=== PATIENT | male | born 1950 | race Caucasian/White ===

== ENCOUNTER 2019-06-12 10:14 | Inpatient (IN) | payer OTHER, SELFPAY ==
[2019-06-08 09:55] VITALS: BMI 33.2
[2019-06-12] VITALS (23 sets, daily range): BP systolic 120–163; BP diastolic 51–92; PULSE 37–60; RESP 9–16; TEMP 36.1–36.8; O2SAT 90–100; BMI 33.2
--- NOTE | 2019-06-12 | DI.RAD.S_ITS ---
PROCEDURE: XR LUMBAR SPINE 2-3V INDICATIONS: L4-5 LAMI TECHNIQUE: 2 views of the lumbar spine were acquired. COMPARISON: [facility], MR, MR LUMBAR SPINE WITHOUT CONTRAST, 12/27/2018, 13:09. [facility], CR, XR LUMBAR SPINE FLEXION EXTENSION, 10/25/2018, 10:39. FINDINGS: 2 intraoperative fluoroscopy images demonstrate discectomy and posterior fusion at L4-L5. There is a disc prosthesis in the interspace. IMPRESSION: Discectomy and posterior fusion. Dictated by: Gina Jaramillo M.D. on 06/12/2019 at 18:31 Approved by: Gina Jaramillo M.D. on 06/12/2019 at 18:32
[2019-06-12] MEDS: LACTATED RINGERS 1,000 ML 42 ML IV ×2 (11:20→15:54)
--- NOTE | 2019-06-12 13:50 | PM.PREOP ---
Pre-operative Note Interval Note History & Physical reviewed/Exam performed by Physician: Yes Changes to H&P: No
--- NOTE | 2019-06-12 14:06 | P.OP_ITS ---
Operative Date/Time/Diagnoses Date of procedure: 06/12/19 Time of procedure: 16:55 Pre-op diagnosis: Lumbar stenosis with radiculopathy Lumbar facet cyst Lumbar spondylolisthesis Post-op diagnosis: same Procedure & Clinicians Procedure: L4-5 TLIF (posterior/posterior interbody fusion) with cage L4, L5 screws Iliac crest bone graft aspirate L4-5 laminectomy Use of microscope Placement of epidural catheter Same procedure as scheduled: Yes Indications: [age] year old male with intractable pain from spinal stenosis from a large facet cyst. They had failed conservative management and requested operative intervention. Risks and benefits of surgery were discussed and appropriate consents were obtained. Surgeon: Prince Nobles Executive Assistant To General Counsel: Nuvia Cohen Anesthesia Type: General Operative Notes Findings: None Closure Type: primary Specimen(s): none sent Prosthetic devices, grafts, tissues, transplants, or devices: NuVasive MAS Reline screws Globus Rise cage Applied: catheter Estimated Blood Loss (mL): 20 Procedure in detail: The patient was brought to the operating room and intubated on the table. A time-out was performed. They were then rolled over to the well- padded [place] table in the prone position. Preoperative antibiotics were given. The back was prepped and draped in the standard sterile fashion. Using fluoroscopy, a 4 cm longitudinal incision was made to the well-marked right of the midline. We used Bovie to come down to and split the lumbodorsal fascia. Using fluoroscopy and monitoring, we then percutaneously placed Jamshidi needles down the pedicles of L4 and L5 on the right side. These were changed out to guidewires and then we tapped and then placed the NuVasive MAS Reline screw shanks. We then opened up the retractors and used Bovie to clear up the concert manager olateral gutter as well as medially along the lamina to the spinous processes. A bur was used to decorticate the transverse processes. We brought in the microscope. Using a combination of bur and Kerrison rongeurs, a laminectomy was performed from the right side. There was extensive dissection around the facet cyst. This was adherent to the dura and had to be carefully dissected away, greatly increasing the complexity and time of this laminectomy compared to just doing an approach for a TLIF. Because of this, the laminectomy was a separate and distinct procedure.. We finally cleared over past the midline and carefully depressed the dura until we were able to decompress the opposite side. We cleared out the neural foramen. This completed the laminectomy at L4-5. We then began the TLIF prep. A complete facetectomy was performed on this side at L4-5. We carefully cleaned up the remainder of the foramen until we could easily retract the exiting root as well as clearing medially below the dura and expose the disc space. The disc was prepped with bipolar and then an annulotomy was performed. We performed a diskectomy using a combination of paddles, mikaela, pituitaries, and curettes. We distracted the disc using a paddle and locked the retractor in an open position. We then filled the disc space with Osteocel bone graft. We then placed the globus Rise cage under fluoroscopy and then filled this in with more bone graft. The distraction on the retractor was released to compress down. This completed the posterior interbody fusion portion of the TLIF at L4-5. We then placed the screw heads, john, and locked down the set screws. The wound was copiously irrigated. A small stab incision was made over the PSIS. We used a Jamshidi needle to aspirate several mL of bone marrow from the pelvis. This was mixed with the remaining Osteocel and combined with all of the locally harvested bone graft and placed in the posterolateral gutter for the posterior fusion of the TLIF at L4- 5. An epidural catheter was then placed in the spinal canal by carefully depressing the dura and advancing it 6 cm cephalad under the remaining lamina without resistance. The muscle fascia was closed. The catheter was then injected with a solution containing 4 mL of 0.5% Marcaine, 1 mg Stadol, 4 mg Duramorph, and 100 mcg of fentanyl. This was injected without resistance and the catheter was pulled. We then went to the opposite side. Again using fluoroscopy, a 3 cm incision was made and Bovie was used to come down to split the fascia. Using neural monitoring and fluoroscopy, Jamshidi needles were advanced down the pedicles of [] on the [] side. These were switched over guidewires, tapped, and screws placed. We then placed a john and locked the set screws on this side. The wound was irrigated. The fascia was closed. Vancomycin powder was placed in the wounds. The superficial and skin were closed. A sterile dressing was placed. The patient was then rolled over extubated and brought to recovery room without complications. Complications: none Post-operative Condition: stable Disposition: PACU Plan for aftercare: Inpatient.
[2019-06-12] MEDS: CEFAZOLIN 2 GM/100 ML FROZ.PIGGY IV ×2 (14:19→21:58)
--- NOTE | 2019-06-12 14:53 | SUR.OPER ---
Prone on spine table, head in foam head support, padded chest and pelvic supports, gel pad at knees, lower legs supported by pillows; nipples, genitalia and toes free of pressure, arms secured on foam padded arm boards at <90 degrees abduction. Tape over blanket at thigh secured to table.
[2019-06-12] MEDS: SODIUM CHLORIDE 0.9% 1,000 ML, GENTAMICIN 80 MG IRR ×2 (14:57→14:58)
[2019-06-12] MEDS: THROMBIN (RECOMBINANT) 5,000 UNIT VIAL 5000 UNIT TOP (14:57)
[2019-06-12] MEDS: VANCOMYCIN 1,000 MG VIAL 1000 MG TOP (14:58)
[2019-06-12] MEDS: BUPIVACAINE 0.5% (PF) 4 ML, MORPHINE-PF 4 MG, BUTORPHANOL 1 MG, fentaNYL 100 MCG INJ (16:23)
--- NOTE | 2019-06-12 17:12 | SUR.PHASEI ---
Pt arrived with oral air way and chin lift needed for airway patency, 02 added, airway out, pt responsive.
[2019-06-12] MEDS: HYDROMORPHONE 2 MG INJ IV ×4 (17:18→17:48)
[2019-06-12] MEDS: hydrOXYzine 50 MG/ML INJ 25 MG IM (17:33)
--- NOTE | 2019-06-12 19:15 | PC.NURSE ---
Addendum entered by Jihan Wheat R.N. 06/12/19 23:27: After original assessment, patient very drowsy & mostly dozing, having obvious apnea as long as 10-20 seconds, observed by myself & his . His reports that he does this at home & I have to wake him up to breathe. She said he has never had a sleep study. Patient mouth breathing with head back. Repositioned in bed from left side to his back, then HOB raised from 20 degrees to 40 degrees. He wakes fairly easily to loud voice, although while being instructed to deep breath & stay awake he kept falling asleep. said he asked me what day it was--he is really out of it. I asked to help him stay awake & work on breathing. 2L O2 sat 96-100% and patient did not ever desaturate, pulse ox monitoring on at all times. He did have apnea for the first hour & 1/2 after brought to med-surg, every time he would doze off. I pulled Narcan from [employer] & had med/syringe ready. I told patient that if I gave him medication it would reverse the pain medication, pt aware that nurse would like to avoid that if possible. After spending about 45 minutes with patient at his bedside, working on breathing, working on IS (only getting to 750) & sitting him up to 80 degrees in bed, he woke up, much more alert, oriented x 3 and situation, asking for food. Ate chicken noodle soup & pudding. Denied nausea. Rated back pain increased to 7 or 8, at that point I medicated him with celebrex, tylenol & oxycodone 5 mg. Since then patient has been observed with mostly a regular respiration pattern, once in a while having 5-7 seconds of apnea. O2 2L with sats maintaining high 90's to 100% Wakes easily, agreeable to use IS. Rates pain much better. Repositioned as needed, logrolling technique reinforced. Fall precautions in place tonight, alarm active for safety. slack cooper aware of apnea, RT notified of patient's apnea and they agreed to come & assess patient. Pt's left earlier in the evening, asking nurse to call her if there is any change to patient's status. Original Note: Post-op note: Christophe brought from OR via hospital bed, he is drowsy, falls asleep during conversation, oriented x 3 and situation. Laying flat, requesting to logroll to his left side, assisted him to turn with pillows to support back and legs. Reports he does have pain but then dozes off. Resting HR is 38-41 bpm, regular rhythm, sometimes pulse ox monitor not picking up O2 saturation due to slow pulse, tried repositioning monitor on various fingers with same result. When it works, 2L O2 sat is 100% and HR 38-45 bpm. I notified RT of need for sticker monitor to see if it will read better. Fingers are slightly cool, other extremities warm to the touch. Drsg to lower midline back is CDI, 2nd smaller drsg just right of midline is also CDI. Pulses present, bilateral foot SCD's placed. Disla present with clear yellow output, per DIE WELDER Ignacio, catheter has been bothering patient & he has grabbed at tubing occasionally. asking can't you just take it out? I talked to patient & his about leaving disla in place short term until he is more awake & able to stand at bedside to use urinal. Fall precautions in place, alarm active for safety. Cynthia marshall RN in room to complete admission assessment.
[2019-06-12] MEDS: ACETAMINOPHEN 325 MG TABLET 650 MG PO (20:34)
[2019-06-12] MEDS: CELECOXIB 200 MG CAPSULE 400 MG PO (20:34)
[2019-06-12] MEDS: OXYCODONE IR 5 MG TABLET PO ×2 (20:35→23:43)
[2019-06-12] MEDS: LACTATED RINGERS 1,000 ML 125 ML IV (20:37)
[2019-06-12] MEDS: DOCUSATE 100 MG CAPSULE PO (21:58)
[2019-06-12] MEDS: SENNOSIDES 8.6 MG TABLET 17.2 MG PO (21:58)
[2019-06-12] MEDS: GABAPENTIN 600 MG TABLET PO (21:58)
[2019-06-13] MEDS: HYDROMORPHONE 1 MG INJ 0.5 MG IV ×2 (00:52→23:15)
[2019-06-13] MEDS: LACTATED RINGERS 1,000 ML 125 ML IV (03:53)
[2019-06-13] MEDS: OXYCODONE IR 5 MG TABLET 10 MG PO ×5 (05:19→19:46)
[2019-06-13] MEDS: CEFAZOLIN 2 GM/100 ML FROZ.PIGGY IV (05:22)
[2019-06-13 05:54] VITALS: BP 123/80; PULSE 52; RESP 16; TEMP 36.6; O2SAT 96
[2019-06-13 06:02] LABS: Hematocrit 43.3 % (41-53); Hemoglobin 14.4 g/dL (13.5-17.5)
--- NOTE | 2019-06-13 08:10 | PM.PNPO.1 ---
Subjective Subjective Date Patient Seen: 06/13/19 Time Patient Seen: 08:10 Interval history: He is doing well. Back pain about 12/11. No leg symptoms Exam Vital Signs (past 8 hours): - 06/13/19 05:54 Temperature 97.8 F Pulse Rate 52 L Respiratory Rate 16 Blood Pressure 123/80 Pulse Oximetry 96 Oxygen Delivery Method Nasal Cannula Oxygen Flow Rate 0 Const Orientation: alert and oriented x3 Back/Spine/Pelvis Other: CDI. 5/5 motor both lower extremities. Objective Labs Result Diagrams: 06/13/19 05:30 Labs: Laboratory Results - last 24 hr 06/13/19 05:30 Hgb 14.4 Hct 43.3 Assessment & Plan Post-op Postoperative Procedures: Procedures Operation Date: 06/12/19 12:45 Actual Procedures Side Surgeon p L4-5 laminectomy and instrumentation fusion w/bone graft Prince Nobles MD he is doing well. Mobilize today with physical therapy. Anticipate discharge home tomorrow.
[2019-06-13] MEDS: DOCUSATE 100 MG CAPSULE PO ×2 (08:41→21:57)
[2019-06-13] MEDS: raNITIdine 150 MG CAPSULE PO (08:41)
[2019-06-13] MEDS: METFORMIN HCL 500 MG TABLET PO (08:42)
[2019-06-13] MEDS: GABAPENTIN 600 MG TABLET PO ×3 (08:42→21:57)
[2019-06-13] MEDS: CELECOXIB 200 MG CAPSULE PO ×2 (08:42→21:57)
[2019-06-13] MEDS: LISINOPRIL 20 MG TABLET PO (08:42)
[2019-06-13] MEDS: ACETAMINOPHEN 325 MG TABLET 650 MG PO ×2 (08:43→15:41)
[2019-06-13] MEDS: ATORVASTATIN 20 MG TABLET PO (08:44)
[2019-06-13] MEDS: hydrOXYzine pamoate 25 MG CAPSULE PO ×3 (08:44→19:59)
[2019-06-13] MEDS: hydroCHLOROthiazide 12.5 MG CAPSULE PO (08:46)
[2019-06-13 10:00] VITALS: BP 133/73; PULSE 57; RESP 17; TEMP 36.6; O2SAT 100
--- NOTE | 2019-06-13 10:54 | PT.IIE ---
Current Diagnoses Spondylolisthesis, lumbar region (06/12/19) Spinal stenosis, lumbar region with neurogenic claudication (06/12/19) Surgery Performed Operation Date: 06/12/19 12:45 Actual Procedures p L4-5 laminectomy and instrumentation fusion w/bone graft - Prince Nobles MD Surgical History (Last Updated 06/08/19 @ 10:32 by Natasha Tony, RN) History of bilateral carpal tunnel release (Acute ~2015) Hx of tonsillectomy (Acute) S/P epidural steroid injection (Acute) Medical History (Last Updated 06/08/19 @ 10:35 by Natasha Tony, NICOLETTE) HLD (hyperlipidemia) (Acute) HTN (hypertension) (Acute) Pre-diabetes (Acute) Physical Therapy Inpatient Evaluation/Re-Eval M1 PT/OT-IP Prior Functional Status Start: 06/13/19 08:15 Freq: NEEDED Status: Active Protocol: Document 06/13/19 08:50 HH (Rec: 06/13/19 10:54 HH [id number]) Medical Review Prior Functional Status Medical History Reviewed Yes Communication No deficits noted. able to make needs known Mobility and Gait Pt was independnent for all home and community without using AD. Reports increased back pain during bending over and quick movements. Activities of Daily Living and IADL's independent for all ADLs and IADLs without AD Social History Household Members spouse Living Arrangements House Number of Floors (Floors) Two Floors Number of Stairs To Enter/Railing? no RICH 10 steps to second floor with B rails. (has a landing at 6th step) Home Environment Standard Height Toilet,Tub/ Shower Home Equipment Front Wheel Walker,Bedside Commode,Hand Held Shower Employment Status Retired Additional Social History Comment Pt lives with his in [facility] who works retail department reset 3 days/ week. He states his is very independent and able to assist as needed. Pt usually stays on 2nd floor but he could stay on main floor at this point with bedroom and full bathroom access. M2 PT-IP Current Condition Start: 06/13/19 08:15 Freq: NEEDED Status: Active Protocol: Document 06/13/19 08:50 HH (Rec: 06/13/19 10:54 [id number]) Physical Therapy Current Condition Current Condition Evaluation Date 06/13/19 Treatment Diagnosis L4-5 TLIF, difficulty in walking and decreased activity tolerance Onset Date 06/12/19 Precautions Lumbar Precautions Log Roll,No Twisting,Limit Bending,Lifting Restriction of 10 lbs,Gait Belt above Incisional Area Weight Bearing Status Weight Bearing Status Full Weight Bearing M3 PT-IP Subjective Start: 06/13/19 08:15 Freq: NEEDED Status: Active Protocol: Document 06/13/19 08:50 (Rec: 06/13/19 10:54 [id number]) Subjective Physical Therapy Visit Type Type Initial Evaluation Visit Start Time 08:50 Visit Stop Time 09:30 Total Visit Minutes 40 Notes Per RN Jennifer, Pt has not gotten OOB yet. Number of PLANT CHANGER Visits 0 Physical Therapy Visit Comments Patient Comments I want to walk to see what i am capable to do. Patient Goals To return home with his . Therapy Pain Assessment Pain When Pain Assessed During Mobility Pain Present Pain Present Pain Reported Location Lower Back Intensity 6 Scale Used Numeric (1 - 10) Description Acute Pain Management Techniques Distraction,Timing of Activity with Medications M4 PT-IP Mobility and Gait Start: 06/13/19 08:15 Freq: NEEDED Status: Active Protocol: Document 06/13/19 08:50 (Rec: 06/13/19 10:54 [id number]) PT-Bed Mobility Assessment Rolling Type of Rolling Log Rolling Level of Assist Standby Assistance Supine to Sit Supine to Sit Standby Assistance Scooting Scooting to Edge of Bed Standby Assistance Scooting Up and Down in Bed Standby Assistance PT-Transfer Assessment Sit to and From Stand Sit to and from Stand Standby Assistance Equipment Transfer Assistive Device Gait Belt,Front Wheeled Walker Orthotic/Prosthetic Devices or Brace: No Transfers Transfer Destination Bed,Chair Transfer Technique amb with FWW Transfer Ability Level of Assist Standby Assistance Comments Mobility Comments Pt was in supine upon assessment. BP remains 130s/ 70s during session. Pt was able to recall all post op precautions BLT and log roll. He completed log roll and sidelying to sit with UEs pushed off from bed. He scooted towards EOB and performed sit to stand with FWW SBA. Pt was able to use B UEs push off from bed with a squatting position to minimize trunk flexion. He then returned to bedside chair with proper hand placements on chair armrests with upright eccentric squatting position. Pt sat comfortably in chair without increased discomfort and call light within reach. Gait Assessment Gait Gait Assistance Required: Standby Assistance Distance (Feet) 150 Able to Maintain Weight Bearing Status Yes During Gait Assistive Devices Assistive Device Gait Belt,Front Wheeled Walker Orthotic/Prosthetic Devices or Brace: No Gait Deviations General Gait Pattern Decreased Stride Length, Decreased Feet Clearance Factors Limiting Gait Function Factors Limiting Gait Function Decreased Activity Tolerance, Decreased Strength,Limited Range of Motion,Pain Comments Gait Comments Pt was able to amb a full lap of north station with FWW and SBA. Pt was also able to stand unsupportedly multiple times to chat with PT. He demonstrated a steady and close to normal gait speed with FWW. He did not c/o increased back pain or any discomfort. Stair Climbing Assessment Comments Stair Climbing Comments did not assess PT-Balance Assessment Sitting Balance and Reactions Static Sitting Balance Ability Normal Dynamic Sitting Balance Ability Normal Standing Balance and Reactions Static Standing Balance Ability Normal Dynamic Standing Balance Ability Normal M5 PT-IP Objective Assessments Start: 06/13/19 08:15 Freq: NEEDED Status: Active Protocol: Document 06/13/19 08:50 (Rec: 06/13/19 10:54 [id number]) Orientation Orientation/Cognition Level of Alertness Alert Orientation Name,Age,Birthday,Month,Date, Year,Day of Week,Place, Situation Language Function Ability No Deficits Noted Safety Awareness Understands Safety Issues Memory Description No Deficits Noted Gross Range of Motion Upper Extremity ROM Assessment Within Functional Limits Lower Extremity ROM Assessment Within Functional Limits Strength Upper Extremity Strength Assessment Within Functional Limits Lower Extremity Strength Assessment Right Impaired Hip 4+/5 Knee 4+/5 Coordination Assessment Gross Coordination Gross Coordination WNL Sensation Assessment Sensation Gross Sensation Right LE Impaired Light Touch Impaired Proprioception (Position) Impaired Sensation Description Numbness Comments Sensation Comments Pt reports dull sensation to touch for distal L4-L5 dermatome. Muscle Tone Muscle Tone WNL Yes M6 PT-IP Treatment Start: 06/13/19 08:15 Freq: NEEDED Status: Active Protocol: Document 06/13/19 08:50 (Rec: 06/13/19 10:54 [id number]) Physical Therapy Treatment Exercises Exercises Gluteal Sets,Quad Sets Education Education Provided Precautions,Weight Bearing Status,Post-Op Packet,Safety M7 PT-IP Assessment and Plan Start: 06/13/19 08:15 Freq: NEEDED Status: Active Protocol: Document 06/13/19 08:50 (Rec: 06/13/19 10:54 [id number]) PT Summary Assessment and Plan Potential Rehabilitation Potential Excellent Status of Condition at Evaluation Stable Summary Impairments Pain,ROM,Strength,Balance,Bed Mobility,Transfers,Gait, Activity Tolerance Progress Towards Goals Safe For Discharge Assessment Summary Pt is a low complexity s/p POD 1 L4-L5 TLIF. Pt was able to recall all BLT and log roll post op precautions without cueing. He completed bed mobility, transfers and amb with SBA and FWW. He denies any discomfort or increased pain during session, along with stable VSS. Pt is safe for d/c home with 's assistance at this point. Frequency of Treatment Frequency Of Treatment Discharge Recommendations To Nursing Amount of Assist Needed Standby Assistance Discharge Recommendations PT Discharge Recommendations Home with Assistance
--- NOTE | 2019-06-13 12:05 | OT.IP.EVAL ---
Current Diagnoses Spondylolisthesis, lumbar region (06/12/19) Spinal stenosis, lumbar region with neurogenic claudication (06/12/19) Surgery Performed Operation Date: 06/12/19 12:45 Actual Procedures p L4-5 laminectomy and instrumentation fusion w/bone graft - Prince Nboles MD Past Medical History (Last Updated 06/08/19 @ 10:35 by Natasha Tony, RN) HLD (hyperlipidemia) (Acute) HTN (hypertension) (Acute) Pre-diabetes (Acute) Surgical History (Last Updated 06/08/19 @ 10:32 by Natasha Tony RN) History of bilateral carpal tunnel release (Acute ~2015) Hx of tonsillectomy (Acute) S/P epidural steroid injection (Acute) Occupational Therapy Inpatient Evaluation/Re-Eval M1 PT/OT-IP Prior Functional Status Start: 06/13/19 08:15 Freq: NEEDED Status: Active Protocol: Document 06/13/19 12:05 PJM (Rec: 06/13/19 12:20 PJ [id number]) Medical Review Prior Functional Status Medical History Reviewed Yes Diet/Fluid Consistency Regular Communication WNL Mobility and Gait Pt was independent for all home and community mobility without using AD. Reports increased back pain during bending over and quick movements. Activities of Daily Living and IADL's independent for all ADLs and IADLs without AD, including driving. Social History Household Members spouse Living Arrangements House Number of Floors (Floors) Two Floors Number of Stairs To Enter/Railing? no RICH 10 steps to second floor with B rails. (has a landing at 6th step) Home Environment Standard Height Toilet,Tub/ Shower Home Equipment Front Wheel Walker,Bedside Commode,Shower Seat with Backrest,Hand Held Shower, Certified Coder,Grab Bars In Shower Employment Status Retired Additional Social History Comment Pt lives with his in [facility] who works clinical partner 3 days/ week. He states his is very independent and able to assist as needed. Pt usually stays on 2nd floor but he could stay on main floor at this point with bedroom and full bathroom access. Pt plans to use BSC over toilet and his will move it into tub shower for use as tub seat. M2 OT-IP Current Condition Start: 06/13/19 12:09 Freq: Status: Active Protocol: Document 06/13/19 12:05 PJM (Rec: 06/13/19 12:20 [facility] [id number]) Occupational Therapy Current Condition Current Condition Evaluation Date 06/13/19 Treatment Diagnosis decr'd self care, functional mobility s/p L4-5 TLIF Diagnosis Onset Date 06/12/19 Post Operative Precautions Lumbar Precautions Log Roll,No Twisting,Limit Bending,Lifting Restriction of 10 lbs,Gait Belt above Incisional Area M3 OT- IP Subjective and Pain Start: 06/13/19 12:09 Freq: Status: Active Protocol: Document 06/13/19 12:05 PJM (Rec: 06/13/19 12:20 [facility] [id number]) OT- Subjective Occupational Therapy Visit Type Type Initial Evaluation Visit Start Time 11:36 Visit Stop Time 12:05 Total Visit Minutes 29 Notes Pt's not here this session Occupational Therapy Visit Comments Patient Comments I think I wuill wait to shower until I go home. Patient/Caregiver Goals to have less back pain during self care, IADLS OT Pain Assessment Pain When Pain Assessed After Treatment Pain Present Pain Present Pain Reported Location Lower Back Intensity 6 Scale Used Numeric (1 - 10) Description Aching,Acute Pain Behaviors Guarding Management Techniques Distraction,Re-positioning, Timing of Activity with Medications M4 OT- IP ADL's Start: 06/13/19 12:09 Freq: Status: Active Protocol: Document 06/13/19 12:05 PJ (Rec: 06/13/19 12:20 [facility] [id number]) OT [id number] General Evaluation Self-Feeding Ability Independent OT ADL-Grooming Comments OT Grooming Comments did not occur this session OT ADL-Oral Care Comments Oral Care Comments did not occur this session OT ADL-Dressing General Eval Upper Body Dressing Ability Standby Assistance Areas Needing Assistance Pants/Shorts,Socks,Shoes Assistive Devices Dressing Assistive Devices Long Handled Shoe Horn,Certified Coder ,Sock Aid Comments OT Dressing Comments Began education and pt practice re: use of hand tube winder and sock aid for lower body dressing. Pt has hand tube winder; long shoe horn and sock aid provided. OT ADL-Toileting General Evaluation Toileting Ability Total Assistance Comments OT Toileting Comments disla still in place OT ADL-Bathing Comments OT Bathing Comments to be assessed M5 OT- IP IADL's Start: 06/13/19 12:09 Freq: Status: Active Protocol: Document 06/13/19 12:05 PJM (Rec: 06/13/19 12:20 PJ [email or web address]) OT-Instrumental Activities of Daily Living Deficits IADL Deficits Identified Deficits Home Safety Awareness Awareness of Need for Assistance at Home Good Awareness Ability to Problem Solve Emergency Able to Problem Solve Situations Medication Management Medication Management No Deficits Identified Money Management Money Management No Deficits Identified Meal Preparation Meal Preparation Caregiver Provides Assist Meal Preparation Comments to assist until pt able Gold Leaf Roller Gold Leaf Roller Caregiver Provides Assist Gold Leaf Roller Comments to assist until pt able Driving Driving Concerns Identified Regarding Safety Driving Comments to assist until pt able M6 OT- IP Functional Cognition Start: 06/13/19 12:09 Freq: Status: Active Protocol: Document 06/13/19 12:05 PJM (Rec: 06/13/19 12:20 PJ [id number]) Cognitive Factors Limiting Selfcare Function Cognitive Ability Level of Alertness Alert Patient Orientation Name,Age,Birthday,Month,Date, Year,Day of Week,Place, Situation Attention Span Ability Capable of Focused Attention, Capable of Sustained Attention Ability to Follow Commands Able to Follow Multi-Step Commands Memory Description No Deficits Noted Safety Awareness No Deficits Noted Problem Solving Ability No deficits Noted Executive Function Ability No Deficits Noted OT- Vision and Hearing OT- Hearing Assessment OT- Hearing Assessment WFL OT- Vision Assessment Visual Acuity WFL,Glasses All The Time M7 OT- IP Mobility and Balance Start: 06/13/19 12:09 Freq: Status: Active Protocol: Document 06/13/19 12:05 PJM (Rec: 06/13/19 12:20 PJ [id number]) OT-Transfer Assessment Comments Mobility Comments see P.T. notes; pt seen up in recliner this session OT- Gait Assessment Comments Gait Ability Comments see P.T. notes OT- Balance Assessment Sitting Balance and Reactions Static Sitting Balance Ability Good Dynamic Sitting Balance Ability Good Comments Other Balance Tests/Deviations/Treatment during seated lower body : dressing M8 OT- IP Objective Assessments Start: 06/13/19 12:09 Freq: Status: Active Protocol: Document 06/13/19 12:05 PJM (Rec: 06/13/19 12:20 PJ [id number]) OT Gross Range of Motion Upper Extremity Range of Motion Assessment Within Functional Limits OT Strength Upper Extremity Strength Assessment Within Functional Limits OT- Coordination Assessment Upper Extremity Finger to Nose Test Within Functional Limits OT-Muscle Tone Assessment Muscle Tone WNL Yes OT Sensation Assessment Comments Summary Comments BUE WNL per pt Edema Edema Absent M9 OT- IP Assessment and Plan Start: 06/13/19 12:09 Freq: Status: Active Protocol: Document 06/13/19 12:05 PJM (Rec: 06/13/19 12:20 PJM [id number]) OT Summary Assessment and Plan Potential Rehabilitation Potential Excellent Analytic Complexity at Evaluation Low Summary OT Impairments Pain,Functional Mobility, Dressing,Toileting,Bathing, Toilet Transfers,Shower Transfers Assessment Summary Low complexity OT assessment completed on this 69 yr old male s/p L4-5 TLIF. Began education re: lumbar precautions and adapted ADL techniques. Pt has minor performance deficits in functional mobility, standing grooming, dressing, bathing, toileting. Disla still in place. Anticipate 1 additional OT treatment in AM for further ADL practice. Pt may d/c home tomorrow if medically stable and clears P.T. Goals Grooming Goal Independent Dressing Goal Independent,Long Handled Shoe Horn,Certified Coder,Sock Aid Toileting Goal Independent Bathing Goal Standby Assistance Toilet Transfer Goal Independent Shower Transfer Goal Standby Assistance Patient/Caregiver Education Goal Demonstrate Post-Op Precautions,Demonstrate Energy Conservation and Pacing, Caregiver Independent Assisting Patient Days to Meet Goals 1 Frequency of Treatment Frequency Of Treatment Once a Day Treatment Plan OT Treatment Plan ADL Training,Functional Mobility,Patient/Family Education,Discharge Planning Discharge Recommendations OT Discharge Recommendations Home with Assistance Home Equipment Needs provided long shoe horn and sock aid
[2019-06-13 14:00] VITALS: BP 140/54; PULSE 58; RESP 16; TEMP 36.9; O2SAT 98
--- NOTE | 2019-06-13 15:47 | PC.NURSE ---
Ortho: Pt debating back and forth if he should stay or go. Having some pain issues this am, got oxy, vist, tylenol and he is doing better this afternoon. He only needed oxy then. He says since the epi has worn off during the day today the pain has been more intense. He is worried about going home and maybe needing something IV. Therefore he has decided to stay. Pt does have a slower heart rate and has a past hx of syncopy, he has had a mini cardiac work up but will be getting further work up at a later time. He feels steady on his feet but he reports he has had some dizziness and he was instructed to get up only with assist. he is doing that.
[2019-06-13 16:04] VITALS: BP 121/54; PULSE 45; RESP 18; TEMP 36.9; O2SAT 96
--- NOTE | 2019-06-13 16:05 | CM.DANOTE ---
DCP/Assessment: Reviewed chart. Patient is a 69yr old male admitted [facility] performed by Dr. Nobles on 06-12-19. No PCP listed. Primary payor is 1)[employer]. Met with patient explained CM/SW role. Patient sitting in recliner at time of visit. Patient resides with spouse/Jenny in and hopes to d/c home tomorrow. Prior to admit patient completely I in all ADL's. Patient has all needed DME including a FWW. Received call from [facility]# [phone] she left indicating that if any d/c planning needs arise that she can assist. P: Anticipate home with supportive spouse when stable. VIANCA Wyatt Discharge Planning/Care Management CM Discharge Assessment Start: 06/13/19 16:03 Freq: Status: Active Protocol: Document 06/13/19 16:03 KJS (Rec: 06/13/19 16:05 KJS [id number]) Discharge Planning Assessment Assigned Assistant Professor Of Psychology VIANCA Wyatt Contact Information Jenny Cotto (spouse) Advance Directives? Yes Advance Directives on File No History Provided By Patient,Medical Record Prior Living Arrangements House Household Members spouse Type of transporation used prior to Drives own vehicle admit Independent with ADL's Yes Is patient alert and oriented? Yes Caregiver for Another No DME Already Rented / Owned FWW / Walker Discharge Plan Home Whiteboard Updated in Patient Room with Yes name and ext. # of Assistant Professor Of Psychology Review Status In Process Next Review Type Continued Stay Review Pre-Anesthesia Assessment Start: 06/08/19 09:55 Freq: Status: Complete Protocol: Document 06/08/19 09:55 CAB (Rec: 06/08/19 10:08 CAB [id number]) Pre-Anesthesia Assessment Patient Information Reviewed Via Phone Assessment Assessment Completed With Patient H&P Completed Within 30 Days Yes Diagnostic Results BMP/CMP,CBC,EKG Comment Outside labs/EKG scanned to record Primary Care Provider Jaya Salas Rai Medical Clearance Received Yes Seen Specialist in Last 12 Months Yes Specialist Seen Orthopedist Comment PCP clearance scanned to record Primary Language German Orchard Hand Required No Height 180.34 cm Weight 107.955 kg Body Mass Index (BMI) 33.2 Hearing Ability Normal Visual Assist Glasses Dentition Type Teeth, Natural Present,Teeth, Missing Barriers to Learning None Other Aids No Hx Anesthesia Reactions No Hx Family Anesthesia Reaction No Hx Malignant Hyperthermia No Hx Blood Transfusions No Anesthesia Review Requested No alcohol intake current alcohol intake frequency a few times a week Smoking Status Never smoker Substance Use Type does not use Pain Present Pain Reported Musculoskeletal Symptoms Abnormal Gait,Back Pain, Difficulty Walking,Numbness, Radiating Pain into Limb, Tingling History of Falling (Recent or History of No ) Patient is completely paralyzed or No completely immobile Mental Status Oriented to own ability Is patient on oxygen? No Does patient have ZENG/SOB No Hx Sleep Apnea No Currently Taking a Beta Jason No Hx Chest Pain No Hx SOB No Hx Syncope or Dizziness No Anti-Coagulant Therapy No Has a Tester Compressed Gases No Cardiac Testing No Hx Pacemaker/ICD No Pacemaker Rep Required? No Cardiac Clearance Received Not Applicable Diet Type At Home Regular dysphagia No Urinary Catheter Present No Hx Urinary Self Catheterization No Diabetes No: Pre-diabetes HgbA1C 5.7 Date 05/23/19 Hx Drug Resistant Organism No Presence of External or Internal Medical No Devices Have you traveled outside the [facility] in the last 30 days? Marital Status Lives With spouse Prior Living Arrangements House Number of Floors (Floors) Two Floors Support System Spouse Does the Patient Have Assistance After Yes Surgery Patient Discharge Plan Description Return Home Comment Pt advised 1-2 day length of stay per surgeon Feels Safe in Current Environment Yes Been Physically Hurt or Threatened By a No Person in Current Environment Do you have thoughts of harming yourself None or others? Are you currently considering suicide? No Do you have a plan to hurt yourself or No Plan others? Do You Have Any Spiritual Beliefs That No May Affect Your HC Choices? Do You Have Any Cultural Practices That No May Affect Your HC Choices? Spiritual Referral Confucianism clergy/Lay safe deposit box rental clerk visit Comment Quaker Who Can We Speak to About Patient's Care Family, friends Identifying Code for Release of Patient Declines to issue Information Health Care Proxy/Next of Kin Jenny () Health Care Proxy Emergency Contact Name Jenny () Emergency Contact Advance Directives? Yes Advance Directives on File No Requested Patient Bring Advanced Yes Directives DOS Power of Pipeline Welder Yes Power of Pipeline Welder Name Jenny () Power of Pipeline Welder PAC Instructions Durable medical equipment, Medications to take/avoid, Nasal antibiotic,No ETOH/ petroleum product on skin DOS, NPO,Post-op transportation,Pre -surgical wash,Sturdy shoes/ comfortable clothes,Do not bring valuables and remove jewelry
--- NOTE | 2019-06-13 18:09 | PC.NURSE ---
Addendum entered by Janet Buchanan R.N. 06/13/19 23:30: Pt ambulating in hallway with walker and FURNACE MECHANIC standby this evening shift. Then up to chair. Pt reports oxycodone barely takes edge off of pain and rates this @ 7/10. Pt reports unable to sleep with pain @ this level. After discussion with pt, administered 0.5 mg iv dilaudid to manage pain. Continuous pulse oximeter in place. Room air 99%. Addendum entered by Janet Buchanan R.N. 06/13/19 18:19: Pt and pt's spouse were educated on the constipating effects of narcotics. Encouraged prune juice/prunes as well as meds and suggested pt be vigilent in taking same to prevent constipation. Original Note: Pt in bed awake, alert, very conversant with staff @ beginning of shift. Rates surgical pain to back 7/10 and was medicated as per emar. Deal to gravity with understanding per dayshift report and conversation with pt will be removed in a.m. in preparation for discharge to home. Pt's spouse is present and involved in pt's care. Pt observes log rolling technique for inspection of back dressing. Old shadowy drainage left lateral and right proximal central lower back dressing outlined. I.S. use encouraged. BL foot pumps in place. Palpable pedal pulses BL. Admits to full sensation to BL LE's. Able to push and pull with feet BL.
[2019-06-13 19:43] VITALS: BP 99/53; PULSE 43; RESP 18; TEMP 37.3; O2SAT 97
[2019-06-13] MEDS: SODIUM CHLORIDE 0.9% FLUSH 10 ML IV (19:59)
[2019-06-13] MEDS: SENNOSIDES 8.6 MG TABLET 17.2 MG PO (21:57)
[2019-06-13] MEDS: diphenhydrAMINE 25 MG TABLET PO (22:09)
[2019-06-13 23:00] VITALS: BP 138/64; PULSE 49; RESP 18; TEMP 36.8; O2SAT 96
[2019-06-14] MEDS: OXYCODONE IR 5 MG TABLET 10 MG PO ×4 (01:24→12:16)
[2019-06-14 06:06] VITALS: BP 116/60; PULSE 46; RESP 18; TEMP 36.3; O2SAT 95
--- NOTE | 2019-06-14 06:09 | PC.NURSE ---
Patient states that the pain doesn't get much lower than a 6, medicated per MAR as requested by patient. Several visual checks of patient found him to appear to be asleep, patient reports feeling like he didn't sleep at all. Deal removed per protocol at 0600 with no complaints.
--- NOTE | 2019-06-14 06:46 | PM.PNPO.1 ---
Subjective Subjective Date Patient Seen: 06/14/19 Time Patient Seen: 06:46 Interval history: He is doing better. Comfortable at rest but most the pain when he tries to roll or get out of bed. 10. No leg pain Exam Vital Signs (past 8 hours): - 06/13/19 23:00 06/14/19 06:06 Temperature 98.2 F 97.4 F L Pulse Rate 49 L 46 L Respiratory Rate 18 18 Blood Pressure 138/64 116/60 Pulse Oximetry 96 95 Oxygen Delivery Method Room Air Oxygen Flow Rate 0 Const Orientation: alert and oriented x3 Back/Spine/Pelvis Other: Mild drainage. 5/5 motor both lower extremities Objective Labs Result Diagrams: 06/13/19 05:30 Assessment & Plan Post-op Postoperative Procedures: Procedures Operation Date: 06/12/19 12:45 Actual Procedures Side Surgeon p L4-5 laminectomy and instrumentation fusion w/bone graft Prince Nobles MD he is doing well. Mobilize again with PT and discharge home today.
[2019-06-14 08:15] VITALS: BP 112/70; PULSE 45; RESP 16; TEMP 36.8; O2SAT 95
[2019-06-14 09:05] VITALS: BP 116/70
[2019-06-14] MEDS: METFORMIN HCL 500 MG TABLET PO (09:05)
[2019-06-14] MEDS: raNITIdine 150 MG CAPSULE PO (09:05)
[2019-06-14] MEDS: ATORVASTATIN 20 MG TABLET PO (09:05)
[2019-06-14] MEDS: GABAPENTIN 600 MG TABLET PO (09:05)
[2019-06-14] MEDS: CELECOXIB 200 MG CAPSULE PO (09:05)
[2019-06-14] MEDS: LISINOPRIL 20 MG TABLET PO (09:05)
[2019-06-14] MEDS: DOCUSATE 100 MG CAPSULE PO (09:05)
[2019-06-14] MEDS: SODIUM CHLORIDE 0.9% FLUSH 10 ML IV (09:06)
[2019-06-14] MEDS: hydroCHLOROthiazide 12.5 MG CAPSULE PO (09:06)
--- NOTE | 2019-06-14 10:37 | OT.IP.TRT ---
Current Diagnoses Spondylolisthesis, lumbar region (06/12/19) Spinal stenosis, lumbar region with neurogenic claudication (06/12/19) Surgery Performed Operation Date: 06/12/19 12:45 Actual Procedures p L4-5 laminectomy and instrumentation fusion w/bone graft - Prince Nobles MD Occupational Therapy Treatment Note M3 OT- IP Subjective and Pain Start: 06/13/19 12:09 Freq: Status: Active Protocol: Document 06/14/19 10:37 PJM (Rec: 06/14/19 16:33 PJM [id number]) OT- Subjective Occupational Therapy Visit Type Type Treatment Note Visit Start Time 09:42 Visit Stop Time 10:37 Total Visit Minutes 55 Occupational Therapy Visit Comments Patient Comments I'm not sure when my can come get me today. Patient/Caregiver Goals to go home later today, have less back pain during daily activities OT Pain Assessment Pain When Pain Assessed After Treatment Pain Present Pain Present Pain Reported Location Lower Back Intensity 6 Scale Used Numeric (1 - 10) Description Aching,Acute Pain Behaviors Guarding Management Techniques Distraction,Re-positioning, Timing of Activity with Medications M4 OT- IP ADL's Start: 06/13/19 12:09 Freq: Status: Active Protocol: Document 06/14/19 10:37 PJM (Rec: 06/14/19 16:33 PJM [id number]) OT TLH-Ajqy-Szhjpfi General Evaluation Self-Feeding Ability Independent OT ADL-Grooming General Evaluation Grooming Ability Independent Comments OT Grooming Comments standing at sink after education re: body mechanics OT ADL-Oral Care General Eval Oral Care Ability Independent Comments Oral Care Comments standing at sink after education re: body mechanics OT ADL-Dressing General Eval Upper Body Dressing Ability Independent Lower Body Dressing Ability Independent Areas Needing Assistance Pull-Over Shirt,Underpants/ Brief,Pants/Shorts,Socks,Shoes Assistive Devices Dressing Assistive Devices Long Handled Shoe Horn,Coupon Collection Clerk ,Sock Aid Comments OT Dressing Comments after education re: body mechanics and use of adaptive equipt OT ADL-Toileting General Evaluation Toileting Ability Independent OT ADL-Bathing Bathing Type Bathing Type Shower General Evaluation Bathing Ability Standby Assistance Areas Needing Assistance Retrieving/Setting Up Items Comments OT Bathing Comments after education re: body mechanics M6 OT- IP Functional Cognition Start: 06/13/19 12:09 Freq: Status: Active Protocol: Document 06/14/19 10:37 PJM (Rec: 06/14/19 16:33 [facility] [id number]) Cognitive Factors Limiting Selfcare Function Cognitive Ability Level of Alertness Alert Patient Orientation Name,Age,Birthday,Month,Date, Year,Day of Week,Place, Situation Attention Span Ability Capable of Focused Attention, Capable of Sustained Attention Ability to Follow Commands Able to Follow Multi-Step Commands Memory Description No Deficits Noted Safety Awareness No Deficits Noted Problem Solving Ability No deficits Noted Cognitive Comments Cognitive Assessment Comments Pt verbalizes and demonstrates understanding of lumbar spine precautions, body mechanics, posture and adapted ADL techniques. OT- Vision and Hearing OT- Hearing Assessment OT- Hearing Assessment WFL OT- Vision Assessment Visual Acuity WFL M7 OT- IP Mobility and Balance Start: 06/13/19 12:09 Freq: Status: Active Protocol: Document 06/14/19 10:37 PJM (Rec: 06/14/19 16:33 PJ [id number]) OT- Bed Mobility Assessment Rolling Type of Rolling Roll to Right Level of Assistance Independent Supine to Sit Supine to Sit Assist Independent Scooting Scooting to Edge of Bed Independent OT-Transfer Assessment Sit to and From Stand Sit to and from Stand Independent Transfers Transfer Ability Independent Technique Transfer Destination Chair,Shower Stall,Toilet Transfer Technique Stand Step Pivot Devices Transfer Assistive Devices Front Wheeled Walker OT- Gait Assessment Gait Gait Assistance Required: Independent Distance (Feet) 35 Assistive Devices Assistive Device Front Wheeled Walker Comments Gait Ability Comments no loss of balance noted; walks without a device in bathroom OT- Balance Assessment Sitting Balance and Reactions Static Sitting Balance Ability Good Dynamic Sitting Balance Ability Good Standing Balance and Reactions Static Standing Balance Ability Good Dynamic Standing Balance Ability Good Comments Other Balance Tests/Deviations/Treatment during standing in shower and : dressing M9 OT- IP Assessment and Plan Start: 06/13/19 12:09 Freq: Status: Active Protocol: Document 06/14/19 10:37 PJM (Rec: 06/14/19 16:33 [facility] [id number]) OT Summary Assessment and Plan Potential Rehabilitation Potential Excellent Summary Progress Towards Goals Safe For Discharge,Goals Met Assessment Summary All OT goals achieved for this admission. Pt plans to d/c home today with assist PRN from who works pressing department supervisor. No further OT services needed Frequency of Treatment Frequency Of Treatment Discharge Discharge Recommendations OT Discharge Recommendations Home with Assistance
--- NOTE | 2019-06-14 12:33 | PC.NURSE ---
Pt is dressed, packed up, dressing to back has been changed and he is ready to go home with Spouse. Went over d/c instructions with Pt-discussed d/c meds, time of last dose, reviewed stroke education, s/s of infection, medicated for pain with transfer home, and encouraged fluid intake to prevent constipation or dehydration. Also reminded Pt about limiting bending, lifting, or twisting and keep lifting weight under 10#. Pt denies further questions and was taken out via w/c by SALES AND MARKETING ASSOCIATE to pov with Spouse and all belongings.
--- NOTE | 2019-06-21 07:30 | P.DS_ITS ---
History of Present Illness History of Present Illness Date Patient Seen: 06/14/19 Time Patient Seen: 06:46 Chief complaint: [id number] Narrative: 69-year-old male with low back and right leg pain. He had failed conservative management with time, therapy, medications, and injections. Discharge Providers Provider Date of admission: 06/12/19 10:14 Discharge Date: 06/14/19 Consults: 06/12/19 19:11 Consult to Occupational Therapy Evaluate & Treat Comment: Physician Instructions: Evaluate and treat Consult to Physical Therapy Evaluate & Treat Comment: Physician Instructions: Evaluate and Treat Discharge provider: Prince Nobles MD Summary Hospital Course Discharge Diagnosis: Lumbar stenosis with radiculopathy Lumbar facet cyst Lumbar spondylolisthesis Hospital Course: His brought to the operating room on 06/12/2019 where he underwent a L4-5 laminectomy and instrumented fusion. He did quite well postoperatively. By postoperative day he was up and ambulating independently. Back pain was under control with medication. No more leg pain. Status at Discharge Cognitive/behavioral status at discharge: oriented Functional status at discharge: uses cane/walker Overall status at discharge: patient is progressing back to baseline Exam Vital Signs (past 8 hours): Oxygen Delivery Method Room Air Oxygen Flow Rate 0 Const Orientation: alert and oriented x3 Back/Spine/Pelvis Other: Mild drainage on dressing. 5/5 motor both lower extremities Objective Labs Result Diagrams: 06/13/19 05:30 Discharge Plan Discharge Plan Patient Disposition: Home Discharge comment: f/u 1.5 wks Discharge orders & Medications Prescriptions: New celecoxib [Celebrex] 200 mg Capsule 200 mg PO BID PRN (Reason: pain) Qty: 60 RF: 0 docusate sodium [DOK] 100 mg Capsule 100 mg PO BID PRN (Reason: constipation) Qty: 30 RF: 0 hydroxyzine pamoate 25 mg Capsule 25 mg PO Q4HR PRN (Reason: spasms) Qty: 20 RF: 0 oxycodone 5 mg Tablet See Rx Instructions .ROUTE .COMPLEX PRN (Reason: Pain, Moderate (4-6)) Qty: 30 RF: 0 Continued gabapentin 600 mg Tablet 600 mg PO TID RF: 0 atorvastatin 20 mg Tablet 20 mg PO DAILY RF: 0 lisinopril 20 mg Tablet 20 mg PO DAILY RF: 0 ranitidine HCl 150 mg Capsule 150 mg PO QAM RF: 0 metformin 500 mg Tablet 500 mg PO DAILY RF: 0 hydrochlorothiazide 12.5 mg Capsule 12.5 mg PO QAM RF: 0 Discontinued acetaminophen-codeine [Tylenol-Codeine #3] 300-30 mg Tablet 1 tab PO Q4-6H PRN (Reason: Pain) RF: 0 Follow up/Referrals: Prince Nobles MD [Physician] - As previously scheduled Discharge Health Status Multidrug resistant organism: No MDRO Diet/Activity/Treatments Diet: Carb-consistent/Diabetic Activity: limited BLT 10 lbs max lift Skin/Wound/Dressing Care Report to your healthcare provider any signs of infection, such as:: chills, fev er, night sweats, increased pain, unusual drainage and unusual redness Dressing: may change dressing and shower POD#5 (Tuesday) Visit Report/Discharge Packet Instructions: DI for Constipation, How to Prevent Falls, DI for Transforaminal Lumbar Interbody Fusion Stand Alone Forms: Surgery Discharge Visit Report Forms: Patient Portal/API, Stroke Signs & Symptoms Discharges patient from system. Discharge Date/Time: 06/14/19 12:36
== END 2019-06-14 12:36 | disposition home or self-care (01) | DRG 455 ==
PROVIDERS: Admitting Provider Orthopaedic Surgery; Visit Provider Orthopaedic Surgery
DX: M48.062 Spinal stenosis, lumbar region with neurogenic claudication (principal); M43.16 Spondylolisthesis, lumbar region; I10 Essential (primary) hypertension; E11.9 Type 2 diabetes mellitus without complications; E78.5 Hyperlipidemia, unspecified; Z79.84 Long term (current) use of oral hypoglycemic drugs
CPT/HCPCS: 36415; 72100; 76000; 82962; 85014; 85018; 94762; 97116; 97161; 97165; 97530; 97535; C1776; J0595; J0690; J1170; J2274; J2704; J3010; J3410